=== PATIENT | male | born 1990 | race Caucasian/White ===

== ENCOUNTER 2019-09-15 23:56 | Emergency (ER) | payer OTHER ==
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
[2019-09-16 01:41] LABS: ALT 38 U/L (4-49); AST 33 U/L (17-59); Acetaminophen <10.0 ug/mL; African American GFR (CKD) 80 (>60 ml/min/1.73 sqM); Albumin 5.3 g/dL (3.5-5.0); Alcohol <10 mg/dL; Alkaline Phosphatase 48 U/L (38-126); Anion Gap 11 mmol/L; Blood Urea Nitrogen 15 mg/dL (9-20); Calcium 10.5 mg/dL (8.4-10.2); Carbon Dioxide 26 mmol/L (22-30); Chloride 104 mmol/L (98-107); Glucose 117 mg/dL (74-99); Non-African American GFR(CKD) 69 (>60 ml/min/1.73 sqM); Potassium 3.8 mmol/L (3.5-5.1); Salicylate <1.0 mg/dL; Sodium 141 mmol/L (137-145); Total Bilirubin 0.8 mg/dL (0.2-1.3); Total Protein 8.1 g/dL (6.3-8.2)
[2019-09-16 01:47] LABS: Basophils % (A) 0 %; Eosinophils % (A) 0 %; HCT 47.1 % (39.0-53.0); HGB 15.8 gm/dL (13.0-17.5); Lymphocytes # (A) 1.5 k/uL (1.0-4.8); Lymphocytes % (A) 10 %; MCH 29.1 pg (25.0-35.0); MCHC 33.6 g/dL (31.0-37.0); MCV 86.6 fL (80.0-100.0); Monocytes # (A) 0.9 k/uL (0-1.0); Monocytes % (A) 6 %; Neutrophils # (A) 12.6 k/uL (1.3-7.7); Neutrophils % (A) 83 %; Platelet Count 216 k/uL (150-450); RBC 5.44 m/uL (4.30-5.90); RDW 12.2 % (11.5-15.5); WBC 15.2 k/uL (3.8-10.6)
[2019-09-16] MEDS ORDERED: diphenhydrAMINE 50 MG/ML 1 ML VIAL IVP STA (03:06)
[2019-09-16] MEDS ORDERED: HALOPERIDOL LACTATE 5 MG/ML 1 ML VIAL IM STA (03:06)
[2019-09-16] MEDS ORDERED: LORazepam 2 MG/ML INJ IV STA (03:06)
[2019-09-16 03:44] LABS: Appearance,Urine Clear (Clear); Bilirubin,Urine Negative (Negative); Blood,Urine Negative (Negative); Color,Urine Yellow; Glucose,Urine (UA) Negative (Negative); Ketones,Urine Negative (Negative); Leukocyte Esterase,Urine Negative (Negative); Nitrite,Urine Negative (Negative); PH, Urine 5.5 (5.0-8.0); Protein,Urine Negative (Negative); Specific Gravity,Urine 1.014 (1.001-1.035); Urobilinogen,Urine <2.0 mg/dL (<2.0)
[2019-09-16 04:03] LABS: Amphetamine Screen,Urine Not Detected (NotDetected); Barbiturate Screen,Urine Not Detected (NotDetected); Benzodiazepines Screen,Urine Not Detected (NotDetected); Cocaine Screen,Urine Not Detected (NotDetected); Methadone Screen, Urine Not Detected (NotDetected); Opiate Screen,Urine Not Detected (NotDetected); Oxycodone Screen, Urine Not Detected (NotDetected); Phencyclidine Screen,Urine Not Detected (NotDetected); Tricyclic Antidepressant,Urine Not Detected (NotDetected); Urn Cannabinoid Scrn Detected (NotDetected)
[2019-09-16 05:43] VITALS: TEMP 97.9
[2019-09-16 07:56] VITALS: RESP 16
--- NOTE | 2019-09-16 13:13 | XR ---
EXAMINATION TYPE: XR chest 2V DATE OF EXAM: 09/16/2019 COMPARISON: NONE TECHNIQUE: PA and lateral views submitted. HISTORY: Abnormal labs, leukocytosis FINDINGS: The lungs are clear and there is no pneumothorax, pleural effusion, or focal pneumonia. No overt fa ilure. IMPRESSION: 1. No acute process.
[2019-09-16 18:47] VITALS: BP 125/56; PULSE 70
== END 2019-09-16 18:38 ==
LOC: EC 23:56
DX: F29 Unspecified psychosis not due to a substance or known physiological condition (principal)
CPT/HCPCS: 82075; 36415; 80053; 85025; 81003; 80306; 83520; 80329; 80320; 71046; 99285; 96374; 96375; 96372; J2060; J1200; J1630

== ENCOUNTER 2021-03-19 15:49 | Emergency (ER) | payer MEDICARE, OTHER ==
[2021-03-19 16:15] VITALS: BP 134/77; PULSE 88; RESP 20; TEMP 97.8
--- NOTE | 2021-03-19 17:22 | XR ---
EXAMINATION TYPE: XR foot complete LT DATE OF EXAM: 03/19/2021 CLINICAL HISTORY: A 30-year-old male with leg injury 2 weeks ago TECHNIQUE: Frontal, lateral, and oblique images of the left foot are obtained. COMPARISON: Left foot radiographs dated 03/07/2021 obtained from outside facility FINDINGS: External cast limits evaluation of fine osseous details. Healing fracture again demonstrated at the base of the fifth metatarsal bone. The fracture line appea rs to extend into the tarsometatarsal joint however evaluation is limited due to overlying cast. Remaining included joints are unremarkable. No significant soft tissue swelling seen. Mild generalized osteopenia likely secondary to disuse. IMPRESSION: Healing fracture proximal fifth metatarsal with questionable intra-articular involvement which cannot be definitely ruled out due to presence of overlying cast.
--- NOTE | 2021-03-19 17:30 | ED ---
Lower Extremity Injury HPI - General Chief Complaint: Extremity Injury, Lower Stated Complaint: Leg injury 2wks ago Time Seen by Provider: 03/19/21 16:28 Source: patient, RN notes reviewed Mode of arrival: wheelchair Limitations: no limitations - History of Present Illness Initial Comments: Patient is a 30-year-old male that presents to the emergency department for a broken foot. He notes he broke it several weeks ago and did have a follow-up with an orthopedic doctor at [facility]. He notes that he showed up to his appointment late didn't have his insurance stuff ready. Patient notes that [facility] told not to come back in come to the ER for reevaluation. He notes that the splint feels like it is getting loose. Patient denied any other complaints or issues at this time. He was in no apparent distress or pain. He denied any chest pain shortness of breath headache nausea vomiting diarrhea constipation fever fatigue chills. - Related Data Home Medications Medication Instructions Recorded Confirmed No Known Home Medications 09/16/19 09/16/19 Allergies Allergy/AdvReac Type Severity Reaction Status Date / Time No Known Allergies Allergy Verified 03/19/21 16:15 Review of Systems ROS Statement: Those systems with pertinent positive or pertinent negative responses have been documented in the HPI. ROS Other: All systems not noted in ROS Statement are negative. Past Medical History Past Medical History: No Reported History History of Any Multi-Drug Resistant Organisms: None Reported Additional Past Surgical History / Comment(s): nasal surgery. Past Psychological History: Anxiety, Bipolar, Panic Disorder Smoking Status: Never smoker Past Alcohol Use History: Occasional Past Drug Use History: Marijuana, Opiates General Exam Limitations: no limitations General appearance: alert, in no apparent distress Head exam: Present: atraumatic, normocephalic, normal inspection Eye exam: Present: normal appearance, PERRL, EOMI. Absent: scleral icterus, conjunctival injection, periorbital swelling Neck exam: Present: normal inspection Respiratory exam: Present: normal lung sounds bilaterally. Absent: respiratory distress, wheezes, rales, rhonchi, stridor Cardiovascular Exam: Present: regular rate, normal rhythm, normal heart sounds. Absent: systolic murmur, diastolic murmur, rubs, gallop, clicks GI/Abdominal exam: Present: soft, normal bowel sounds. Absent: distended, tenderness, guarding, rebound, rigid Extremities exam: Present: full ROM, normal capillary refill, other (Splints covering left foot appeared intact and dirty.). Absent: tenderness, pedal edema, joint swelling, calf tenderness Neurological exam: Present: alert, oriented X3 Psychiatric exam: Present: normal affect, normal mood Skin exam: Present: warm, dry, intact, normal color. Absent: rash Course Vital Signs 03/19/21 16:12 Temperature 97.8 F Pulse Rate 88 Respiratory 20 Rate Blood Pressure 134/77 O2 Sat by Pulse 82 L Oximetry Procedures - Orthopedic Splinting/Casting Injury #1 Side: left Lower Extremity Injury Location: foot Lower Extremity Immobilizer: posterior splint, Morgan wrap, synthetic pre-padded splint Medical Decision Making - Medical Decision Making 30-year-old male complaining of being discharged from his orthopedic doctors and being told to come here for reevaluation or left foot fracture.. Left foot x-ray ordered. X-ray left foot: Healing fracture proximal fifth metatarsal with questionable intra-articular involvement which cannot be definitely ruled out due to the presence of overlying cast. Case discussed with Dr. Camarena, patient discharge with follow-up to a different orthopedist. - Radiology Data Radiology results: report reviewed, image reviewed X-ray left foot: Healing fracture proximal fifth metatarsal with questionable intra-articular involvement which cannot be definitely ruled out due to the presence of overlying cast Disposition Clinical Impression: Nondisp fracture of fifth left metatarsal bone with routine healing Disposition: HOME SELF-CARE Condition: Stable Instructions (If sedation given, give patient instructions): Foot Fracture in Adults (ED) Additional Instructions: Please return to the Emergency Department if symptoms worsen or any other concerns. Follow-up primary care. Follow-up with orthopedist in the next several days. Take Tylenol and/or Motrin as a for pain control. Is patient prescribed a controlled substance at d/c from ED?: No Referrals: None,Stated [Primary Care Provider] - 1-2 days Joaquín Boyle MD [STAFF PHYSICIAN] - 1-2 days Sean Hendrix DO [Doctor of Osteopathic Medicine] - 1-2 days Time of Disposition: 17:46
== END 2021-03-19 18:05 | disposition home or self-care (01) ==
LOC: EC 15:49
DX: S92.355G Nondisplaced fracture of fifth metatarsal bone, left foot, subsequent encounter for fracture with delayed healing (principal); X58.XXXD Exposure to other specified factors, subsequent encounter
CPT/HCPCS: 29515; 99283

== ENCOUNTER 2024-01-13 19:42 | Emergency (ER) | payer MEDICARE, OTHER ==
--- NOTE | 2024-01-13 20:20 | ED ---
General Adult HPI - General Source: patient Mode of arrival: ambulatory Limitations: no limitations <Flakita Shields - Last Filed: 01/13/24 20:19> <Alen Kerr - Last Filed: 01/14/24 00:19> - General Stated complaint: Abd Pain Time Seen by Provider: 01/13/24 20:20 - History of Present Illness Initial comments: 33-year-old male presenting with chief complaint of right side pain. Started about 2 hours ago. Patient was coughing when the pain abruptly started. No nausea vomiting. No dysuria or hematuria. Pain is worse with movement. (Flakita Shields) - Related Data Previous Rx's Medication Instructions Recorded Ibuprofen [Motrin] 600 mg PO Q8HR PRN #20 tab 01/14/24 Allergies Allergy/AdvReac Type Severity Reaction Status Date / Time quetiapine [From Seroquel] AdvReac Swelling Verified 01/13/24 20:20 Review of Systems ROS Other: All systems not noted in ROS Statement are negative. <Flakita Shields - Last Filed: 01/13/24 20:19> ROS Other: All systems not noted in ROS Statement are negative. <Alen Kerr - Last Filed: 01/14/24 00:19> ROS Statement: Those systems with pertinent positive or pertinent negative responses have been documented in the HPI. Past Medical History Past Medical History: No Reported History History of Any Multi-Drug Resistant Organisms: None Reported Additional Past Surgical History / Comment(s): nasal surgery. Past Psychological History: Anxiety, Bipolar, Panic Disorder Smoking Status: Never smoker Past Alcohol Use History: Occasional Past Drug Use History: Marijuana, Opiates <Flakita Shields - Last Filed: 01/13/24 20:19> General Exam <Flakita Shields - Last Filed: 01/13/24 20:19> - General Exam Comments Initial Comments: Visual Physical Exam Vital signs reviewed General: Well-appearing, nontoxic, no acute distress. Head: Normocephalic, atraumatic Eyes: PERRLA, EOMI ENT: Airway patent Chest: Nonlabored breathing Skin: No visual rash, normal skin tone Neuro: Alert and oriented 3 Musculoskeletal: No gross abnormalities (Flakita Shields) Course Vital Signs 01/13/24 20:14 Temperature 98.2 F Pulse Rate 90 Respiratory 20 Rate Blood Pressure 146/83 O2 Sat by Pulse 98 Oximetry Medical Decision Making <Flakita Shields - Last Filed: 01/13/24 20:19> - Medical Decision Making I performed the quick note portion of this visit, electronically signed Flakita Shields PA-C (Flakita Shields) Disposition <Flakita Shields - Last Filed: 01/13/24 20:19> Is patient prescribed a controlled substance at d/c from ED?: No <Alen Kerr - Last Filed: 01/14/24 00:19> Clinical Impression: Chest wall injury Disposition: HOME SELF-CARE Condition: Good Instructions (If sedation given, give patient instructions): Chest Wall Pain (ED) Prescriptions: Ibuprofen [Motrin] 600 mg PO Q8HR PRN #20 tab PRN Reason: Pain Referrals: None,Stated [Primary Care Provider] - 1-2 days
[2024-01-14 00:18] LABS: Appearance,Urine Clear (Clear); Bilirubin,Urine Negative (Negative); Blood,Urine Negative (Negative); Color,Urine Colorless; Glucose,Urine (UA) Negative (Negative); Ketones,Urine Negative (Negative); Leukocyte Esterase,Urine Negative (Negative); Nitrite,Urine Negative (Negative); Protein,Urine Negative (Negative); Urobilinogen,Urine <2.0 mg/dL (<2.0)
[2024-01-14] MEDS: traMADol 50 MG TAB PO STA (00:29)
[2024-01-14] MEDS: IBUPROFEN 400 MG TAB PO STA (00:30)
[2024-01-14 01:27] VITALS: BP 129/84; PULSE 85; RESP 18; TEMP 97.8
--- NOTE | 2024-01-14 01:45 | XR ---
EXAMINATION TYPE: XR ribs RT w pa chest xray DATE OF EXAM: 01/13/2024 8:39 PM CLINICAL INDICATION:Male, 33 years old with history of rib pain; [facility] COMPARISON: Chest x-ray 2 views 09/16/2019 TECHNIQUE: Frontal view chest +4 additional views of the right rib cage in various projections. FINDINGS: Cardiomediastinal silhouette is unremarkable. Lungs are clear. No pneumothorax. Ribs appear normally mineralized without evidence of acute displaced fracture or lytic/blastic proces s. Visualized bowel gas pattern is normal. If there is concern for significant occult pathology, CT may be obtained. IMPRESSION: No radiographic evidence of acute osseous pathology.
== END 2024-01-14 01:23 | disposition home or self-care (01) ==
LOC: EC 19:42
DX: S29.9XXA Unspecified injury of thorax, initial encounter (principal); X58.XXXA Exposure to other specified factors, initial encounter
CPT/HCPCS: 81003; 99284

== ENCOUNTER 2024-07-08 19:43 | Emergency (ER) | payer MEDICARE, OTHER ==
[2024-07-08 19:51] VITALS: TEMP 98.3
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
--- NOTE | 2024-07-08 20:22 | XR ---
EXAMINATION TYPE: XR knee complete RT DATE OF EXAM: 07/08/2024 8:18 PM CLINICAL INDICATION: Male, 34 years old with history of injury; COMPARISON: None. TECHNIQUE: XR knee complete RT; examined in Frontal, lateral and oblique projections. FINDINGS: No evidence of any acute osseous pathology, soft tissue swelling, or joint effusion is no becky. Tricompartmental osteophyte formation involving the femoral condyles, tibial plateau and patella . Mild joint space narrowing. IMPRESSION: 1. No acute osseous pathology. 2. Mild tricompartmental osteoarthritic changes. [facility], , 07/08/2024 8:20 PM
[2024-07-08 22:10] VITALS: BP 153/57; PULSE 88; RESP 18
== END 2024-07-08 22:04 | disposition home or self-care (01) ==
LOC: EC 19:43
CPT/HCPCS: 99284

== ENCOUNTER 2024-07-12 21:44 | Emergency (ER) | payer OTHER, MEDICARE ==
[2024-07-12 22:09] VITALS: TEMP 97.8
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
[2024-07-12] MEDS: BACITRACIN ZINC 500 UNIT/GM OINT 28.4 GM TUBE TOPICAL ONE (23:58)
[2024-07-12] MEDS: SULFAMETHOX-TMP 800-160MG 1 EACH TAB PO STA (23:58)
[2024-07-12] MEDS: CEPHALEXIN 500 MG CAP PO STA (23:58)
[2024-07-13 00:06] VITALS: BP 137/90; PULSE 65; RESP 18
== END 2024-07-13 00:06 | disposition home or self-care (01) ==
LOC: EC 21:44
CPT/HCPCS: 99282